=== PATIENT | female | born 2000 | race Asian ===

== ENCOUNTER 2024-07-15 16:22 | Day surgery (SDC) | payer OTHER, SELFPAY ==
[2024-07-15] VITALS (12 sets, daily range): BP systolic 115–137; BP diastolic 52–71
--- NOTE | 2024-07-15 11:17 | ED.GENMED ---
History of Present Illness
<Rakel Mobley PA-C - Last Filed: 07/15/24 14:13>
General
Chief Complaint: Abdominal Pain
Source: patient
Exam Limitations: none
Time Seen by Provider: 07/15/24 10:50
Nursing documentation reviewed up to this point in time: agreed with
History of Present Illness
History of Present Illness:
Patient is a 24-year-old female presenting with right lower abdominal pain starting last night. Patient states around 11 PM she had a dull pain in the middle of her abdomen which she tried to ignore and went to sleep. However�patient states that
she woke up today pain was much more severe and seem to migrate to the right lower quadrant. Pain does seem worse with walking. Reports associated nausea although no vomiting. She has had very little appetite since last night. Patient denies any
fever, chills, diarrhea/constipation, or any symptoms.
Of note�patient was diagnosed with an acute appendicitis in 04/2023 which was treated with IV antibiotics given patient was in [place] and scheduled to come to [facility] to start graduate school making an very soon after diagnosis.
Review of Systems
<Rakel Mobley PA-C - Last Filed: 07/15/24 14:13>
Review of Systems
Allergies reviewed?: Yes
All Other Systems: ROS reviewed and negative except as documented in HPI and ROS
Phy Exam
<Rakel Mobley PA-C - Last Filed: 07/15/24 14:13>
Physical Exam
Physical Exam:
Vitals: Patient's vital signs are stable. Afebrile
General: Patient is well appearing, no acute distress. Nontoxic-appearing
Skin: Warm and dry, no rashes or lesions
Head: Normocephalic, atraumatic
Eyes: Sclera nonicteric.
Throat: Protecting airway
Neck: Normal ROM, no cervical spine tenderness, no meningismus
Cardiac: Regular rate and rhythm, no murmurs.
Pulm: Normal respiratory effort, no wheezes, rales, rhonchi heard on exam.
Abdomen: Abdomen soft. Moderate tenderness in right lower quadrant with voluntary guarding. No rebound tenderness. No CVA tenderness
Extremities: No evidence of cyanosis or edema. Palpable distal pulses
Neuro: AAOx3. Grossly intact.
Psychiatric: Normal affect.
Course
<Rakel Mobley PA-C - Last Filed: 07/15/24 14:13>
Orders/Labs/Results
Orders:
Orders
07/15/24 11:11
0.9% Sodium Chloride 1000 ml [Nss] 1,000 ml IV BOLUS
Ketorolac [Toradol] 15 mg IV NOW STA
Ondansetron Injectable [Zofran] 4 mg IV NOW STA
Test Result ONCE
07/15/24 11:14
CT Abd/pelvis W Iv Cont Urgent
Comment: hx appendicitis tx with IV abx
Reason For Exam: RLQ pain
07/15/24 11:17
Complete Blood Count/With Diff Urgent
Comprehensive Metabolic Panel Urgent
HCG, Serum Qualitative Screen Urgent
Lipase Urgent
07/15/24 11:44
Urinalysis Reflex To Culture Urgent
Date Specimen was Collected: 07/15/24
Time Specimen was Collected: 11:40
07/15/24 13:46
Piperacillin/Tazo 3.375 Gram [Zosyn] 3.375 gram in 50 ml IV NOW
07/15/24 13:50
Consult Surgery [SURGICAL CONSULT] Urgent
Consulting Provider: Grover Lau
Was physician already notified: Yes
Abnormal Lab Results
07/15/24
11:17
WBC 13.1 H 10^3/uL
(4.8-10.8)
Absolute Neuts (auto) 10.6 H 10^3/uL
(1.4-6.5)
Absolute Monos (auto) 0.8 H 10^3/uL
(0.1-0.6)
Neutrophils % 80.9 H %
(42.2-75.2)
Lymphocytes % 12.3 L %
(20.5-51.1)
Glucose 106 H mg/dl
(70-99)
07/15/24 11:17
07/15/24 11:17
Vital Signs
Initial and Last Documented VS:
Initial Vital Signs
Temp Pulse Resp BP Pulse Ox
98.9 F 97 16 137/70 100
07/15/24 09:57 07/15/24 09:57 07/15/24 09:57 07/15/24 09:57 07/15/24 09:57
Last Documented Vital Signs
Temp Pulse Resp BP Pulse Ox
98.9 F 71 16 122/71 100
07/15/24 09:57 07/15/24 13:32 07/15/24 14:00 07/15/24 13:32 07/15/24 13:32
<Angie Hendricks, - Last Filed: 07/15/24 14:30>
Orders/Labs/Results
Orders:
Orders
07/15/24 11:11
0.9% Sodium Chloride 1000 ml [Nss] 1,000 ml IV BOLUS
Ketorolac [Toradol] 15 mg IV NOW STA
Ondansetron Injectable [Zofran] 4 mg IV NOW STA
Test Result ONCE
07/15/24 11:14
CT Abd/pelvis W Iv Cont Urgent
Comment: hx appendicitis tx with IV abx
Reason For Exam: RLQ pain
07/15/24 11:17
Complete Blood Count/With Diff Urgent
Comprehensive Metabolic Panel Urgent
HCG, Serum Qualitative Screen Urgent
Lipase Urgent
07/15/24 11:44
Urinalysis Reflex To Culture Urgent
Date Specimen was Collected: 07/15/24
Time Specimen was Collected: 11:40
07/15/24 13:46
Piperacillin/Tazo 3.375 Gram [Zosyn] 3.375 gram in 50 ml IV NOW
07/15/24 13:50
Consult Surgery [SURGICAL CONSULT] Urgent
Consulting Provider: Grover Lau
Was physician already notified: Yes
Abnormal Lab Results
07/15/24
11:17
WBC 13.1 H 10^3/uL
(4.8-10.8)
Absolute Neuts (auto) 10.6 H 10^3/uL
(1.4-6.5)
Absolute Monos (auto) 0.8 H 10^3/uL
(0.1-0.6)
Neutrophils % 80.9 H %
(42.2-75.2)
Lymphocytes % 12.3 L %
(20.5-51.1)
Glucose 106 H mg/dl
(70-99)
07/15/24 11:17
07/15/24 11:17
Vital Signs
Initial and Last Documented VS:
Initial Vital Signs
Temp Pulse Resp BP Pulse Ox
98.9 F 97 16 137/70 100
07/15/24 09:57 07/15/24 09:57 07/15/24 09:57 07/15/24 09:57 07/15/24 09:57
Last Documented Vital Signs
Temp Pulse Resp BP Pulse Ox
98.9 F 71 16 122/71 100
07/15/24 09:57 07/15/24 13:32 07/15/24 14:00 07/15/24 13:32 07/15/24 13:32
<Rakel Mobley PA-C - Last Filed: 07/15/24 14:13>
MDM/Problems Addressed
Differential Diagnosis Includes:
Not limited to: Appendicitis, mesenteric adenitis, Ovarian Cyst, Ectopic , Kidney Stone, Pyelonephritis, Etc.
MDM/Problems Addressed:
24-year-old female with right lower quadrant abdominal pain worsening since last night. Mild associated anorexia and nausea. No vomiting or known fever. Patient does have history of appendicitis about a year ago while in [place] which was treated
with IV antibiotics only. Vital stable. On exam�patient is nontoxic-appearing. She is moderately tender in right lower quadrant at McBurney's point. No rebound tenderness. Cardio/pulmonary assessment unremarkable. Suspicion for acute
appendicitis given history and abdominal exam. Lower suspicion for pelvic etiology given location of pain. Other considerations include viral illness, mesenteric adenitis, kidney stone, pyelonephritis, etc. Will obtain lab work and CT with IV
contrast.
Chronic conditions affecting care:
N/A
<Rakel Mobley PA-C - Last Filed: 07/15/24 14:13>
*Radiology
Radiology exam reviewed: radiology read reviewed (Acute appendicitis)
*Pulse Oximetry
Patient hypoxic: no
*EKG
Interpreted by ED Provider?: NA
*Line Construction Superintendent Interpretation
Rate: Line Construction Superintendent- N/A
*Critical Care Note
Total Time (30-74mins, 75-104mins- exclusive of procedures): Not Applicable
<Rakel Mobley PA-C - Last Filed: 07/15/24 14:13>
Patient Management
Discussion with other providers: Nephrologist (Dr. Lau-General Surgery)
Escalation/DeEscalation of care consider admission/obs:
Admit to general surgery service for appendectomy vs IV antibiotics
<Rakel Mobley PA-C - Last Filed: 07/15/24 14:13>
Update Note
Update Note:
Update 12:15PM: In to reassess patient at bedside. Pain improved following toadol. Labs noted. Leukocytosis of 13.1. Otherwise no clinically significant abnormalities. CT pending
Update 1:30 PM: CT report reviewed. Finding consistent with acute appendicitis. General surgery consulted who was down to assess patient at bedside. Appendectomy recommended by general surgery given this is a recurrence although patient still
uncertain about surgery for his IV antibiotics. Patient admitted to general surgery service. Plan for OR versus IV antibiotics pending patient's decision on treatment plan. Patient accepted to general surgery service in stable condition.
ED Attending Note
<Rakel Mobley PA-C - Last Filed: 07/15/24 14:13>
-
Portions of this chart may have been created with voice recognition software.� Occasional wrong word or��sound alike� substitutions may have occurred due to the inherent limitations of voice recognition software.
<Angie Hendricks DO - Last Filed: 07/15/24 14:30>
ED Attending Note
Patient seen and examined by attending physician: Yes
I performed the substantive portion of visit, reviewed & personally made and approve the management plan that is documented in note by myself or LYN.: Yes
I performed a history and physical exam of patient and discussed management with resident, I reviewed resident's note and agree with documented findings and plan of care.: Yes
ED Attending Note:
24-year-old female without significant past medical history presenting to the emergency department for right lower quadrant abdominal pain. Patient reports symptoms started yesterday. Notes similar symptoms about a year ago, when she was living in
[place]. Was diagnosed with appendicitis, however treated with antibiotics, no surgical intervention. Denies any surgery in the past. Denies nausea, vomiting, fever. Denies symptoms. Vital signs are within normal limits
On exam patient is well-appearing, nontoxic. Patient has focal tenderness to the right lower quadrant with positive McBurney point tenderness. Concern acute appendicitis. Plan for laboratory analysis and CT abdominal imaging.
14:00 -patient with acute appendicitis. Plan for surgical consultation and admission
Discharge Plan
Departure
Patient Disposition: Admit
Date of Disposition: 07/15/24
Time of Disposition: 14:08
Presentation/result/management discussed w/ accepting MD/: Dr. Lau
Discharge Problem:
Acute appendicitis
Prescriptions:
No Action
multivitamin Tablet
1 tab PO DAILY
cetirizine 10 mg Tablet
10 mg PO DAILYPRN PRN (Reason: allergy symptoms )
lutein 40 mg Capsule
40 mg PO DAILY
Caltrate 600 plus D 600 mg-20 mcg (800 unit) Tablet,Chewable
1 tab PO DAILY
Interventions
Interventions:
*Risk Screen - Suicide Last Done: 07/15/24 10:57
*General Assessment Last Done: 07/15/24 10:57
*Neglect/Abuse Screening Last Done: 07/15/24 10:57
*ED COVID-19 Vaccine History Last Done: 07/15/24 10:57
NK-Mbsqke-Lpzfhtxlvb Assessment Last Done: 07/15/24 10:57
Discharge Date and Time
Print Language: ESTONIAN
[2024-07-15] MEDS: NSS 1000 IV ×2 (11:18→20:36)
[2024-07-15 11:29] LABS: % Basophils 0.4 % (0-2); % Eosinophils 0.2 % (0-6); % Immature Granulocytes 0.3 % (0-0.5); % Lymphocytes 12.3 % (20.5-51.1); % Monocytes 5.9 % (1.7-9.3); % Neutrophils 80.9 % (42.2-75.2); Absolute Basophils 0.1 10^3/uL (0-0.2); Absolute Lymphocytes 1.6 10^3/uL (1.2-3.4); Absolute Monocytes 0.8 10^3/uL (0.1-0.6); Absolute Neutrophils 10.6 10^3/uL (1.4-6.5); Hemoglobin 14.2 g/dL (12.0-16.0); Mean Corpuscular Hgb 29.7 pg (27.0-31.0); Mean Platelet Volume 8.8 fL (7.4-10.4); Nucleated Red Blood Cells % 0 %; Platelet Count 299 10^3/uL (130-400); Red Blood Cell Count 4.78 10^6/uL (4.20-5.40); Red Cell Dist. Width 11.8 % (11.5-14.5); White Blood Cell Count 13.1 10^3/uL (4.8-10.8)
[2024-07-15 11:49] LABS: ALT (SGPT) 30 U/L (0-35); AST (SGOT) 34 U/L (14-36); Albumin 4.8 g/dl (3.5-5.0); Alkaline Phosphatase 56 U/L (38-126); Blood Urea Nitrogen 14 mg/dl (7-17); Calcium 9.8 mg/dl (8.4-10.2); Carbon Dioxide 24 mmol/L (22-30); Chloride 103 mmol/L (98-107); Glucose 106 mg/dl (70-99); Lipase 73 U/L (23-300); Sodium 138 mmol/L (135-145); Total Bilirubin 1.3 mg/dl (0.2-1.3); Total Protein 7.7 g/dl (6.3-8.2); eGFR > 60.00
[2024-07-15 12:02] LABS: HCG, Serum Qualitative Screen Negative
[2024-07-15] MEDS: TORADOL 15 MG IV (12:05)
[2024-07-15 12:17] LABS: Urine Albumin Negative (Neg - Trace); Urine Bilirubin Negative (Negative); Urine Character Clear (Clear); Urine Color Yellow; Urine Glucose Negative (Negative); Urine Ketone Negative (Negative); Urine Nitrite Negative (Negative); Urine Occult Blood Negative (Negative); Urine Urobilinogen Negative (Neg - 1+)
[2024-07-15 12:24] LABS: Urine Leukocyte Negative (Negative)
[2024-07-15] MEDS: ZOSYN 50 IV ×2 (13:52→20:37)
--- NOTE | 2024-07-15 15:53 | CON.GS ---
Medical History
-
Chief Complaint: RLQ pain
History of Present Illness:
Patient is a 24 yo F with a PMH of appendicitis approximately 1 year ago treated with antibiotics while in [place] who presents with less than 24 hours of RLQ abdominal pain. Ms. Barrett states that her symptoms began acutely yesterday evening. She has
had persistent abdominal pain primarily in the RLQ. No nausea or vomiting. No fevers or chills. No fluctuations in bowel function such as diarrhea or bloody stools. No chronic GI issues. No family history notable for IBD or colon cancer. She
is currently not on her period. But is scheduled to have her period in approximately 1 week.
Past Medical History
Past Medical History: Other (Appendicitis managed with antibiotics)
Past Surgical History: None
Social History
Tobacco: Non-Smoker
Alcohol: None
Drug: None
Personal: Single
Family History
Family History: Reviewed & Noncontributory
Allergies / Home Medications
Allergy/AdvReac Type Severity Reaction Status Date / Time
No Known Allergies Allergy Verified 07/15/24 15:12
�Medication �Instructions �Recorded �Confirmed �Type
calcium 600 mg (as carbonate)-vit 1 tab PO DAILY Supplement 07/15/24 07/15/24 History
D3 20 mcg (800 unit) chewable
tablet (Caltrate plus D)
cetirizine 10 mg tablet 10 mg PO DAILYPRN PRN allergy 07/15/24 07/15/24 History
symptoms
lutein 40 mg capsule 40 mg PO DAILY Supplement 07/15/24 07/15/24 History
multivitamin 1 tab PO DAILY Supplement 07/15/24 07/15/24 History
Review of Systems
-
A 10 point review of systems was completed, and was negative except as per HPI.
Physical Exam
Vital Signs
Temp Pulse Resp BP Pulse Ox
98.7 F 76 18 123/69 99
07/15/24 15:11 07/15/24 15:11 07/15/24 15:11 07/15/24 15:11 07/15/24 15:11
07/14/24 07/15/24 07/16/24
06:59 06:59 06:59
Actual Weight 72.3 kg
Body Mass Index (BMI) 0.0
Lab Results
07/15/24 11:17
07/15/24 11:17
WBC 13.1 10^3/uL (4.8-10.8) H 07/15/24 11:17
Hgb 14.2 g/dL (12.0-16.0) 07/15/24 11:17
Hct 43.0 % (37.0-47.0) 07/15/24 11:17
Plt Count 299 10^3/uL (130-400) 07/15/24 11:17
Abs Immat Gran (auto) 0.0 10^3/uL (0-0.05) 07/15/24 11:17
Neutrophils % 80.9 % (42.2-75.2) H 07/15/24 11:17
Physical Exam
General: Well Developed, Well Nourished and No Apparent Distress
Respiratory: Non Labored Respirations
Cardiac: Regular Rhythm
GI: Soft, Non Distended, Tender (RLQ) and Other (Non-peritoneal)
Musculoskeletal: No Edema
Skin: Warm and Dry
Neuro: Nonfocal/Grossly Intact
Data Reviewed
-
CT Scan: Image Personally Visualized and interpreted and Report Reviewed by me
Labs: Labs Reviewed by me
Assessment / Plan
-
Patient is a 24 yo F p/w acute appendicitis
The natural history and pathophysiology of appendicitis was reviewed. CT scan imaging as relates to her appendix was reviewed. Options for management including medical management with antibiotics versus surgical management with appendectomy are
considered and discussed. Pros and cons of both approaches was discussed. Specifically, we discussed failure of medical management and future episodes of appendicitis versus surgical risks. Given her recurrent episodes of appendicitis would
recommend appendectomy.
Plan for laparoscopic appendectomy. The procedure itself, as well as the risks, benefits, and alternatives was discussed. Specifically, we discussed the risk of bleeding, infection, injury to surrounding structures (bowel, bladder), staple line
leak, need for open procedure. Postprocedural recovery was discussed. All questions answered. Consent signed.
-- Laparoscopic appendectomy
-- NPO, IVF
-- Abx: Zosyn
-- Pain control: Tylenol and IV Dilaudid PRN
-- Admit post-operatively
--- NOTE | 2024-07-15 16:01 | W.SUR.PREOP ---
Pre-Operative Surgical Note
-
I have examined this patient prior to the performance of the scheduled procedure.
The patient's condition is unchanged from the time of the current History and
Physical and the patient is able to undergo the scheduled procedure.
--- NOTE | 2024-07-15 17:50 | W.IMMPOSTOP ---
Surgical Immed Post Op Note
-
Primary Surgeon: Judi
Assisting Surgeon: None
Pre-op Diagnosis: Acute appendicitis
Post-op Diagnosis: Acute appendicitis
Procedure Performed: Laparoscopic appendectomy
Anesthesia Type: General
Specimen / Cultures:
1. Appendix
Estimated Blood Loss: 3 cc
Complications: None
Operative Findings:
1. Acutely inflamed and dilated tip appendicitis with normal-appearing base, no evidence of perforation, serous reactive fluid removed from pelvis
2. Mesentery taken with point energy device, base with mack load stapler
--- NOTE | 2024-07-15 18:19 | PTCARENOTE ---
Patient admitted from [facility] post laparoscopic appendectomy.All 4 lap sites are intact without drainage.The patient denies any pain.Vital signs are stable.The patient is alert and oriented.She is in her bed with the call berry in reach.Her family is at
the bedside.
[2024-07-15] MEDS: TYLENOL 650 MG PO (23:24)
[2024-07-16] MEDS: TORADOL 10 MG IV (01:45)
[2024-07-16] MEDS: TYLENOL 650 MG PO ×2 (03:06→08:03)
[2024-07-16 03:16] VITALS: BP 119/73
--- NOTE | 2024-07-16 06:53 | W.PN.GS2 ---
Today's Communication / Plan
-
-- DC
Assessment / Plan
-
Patient is a 24 yo F POD#1 s/p laparoscopic appendectomy
Recovering well. No postoperative concerns.
-- Regular diet
-- HLIV
-- Pain control: Tylenol, Toradol, Oxycodone
-- Abx: None further needed
-- DC home
Subjective Data
-
Date of Service: July 16, 2024
Reports discomfort from gas. Denies any current nausea or vomiting. Minimal ambulation postop. Voiding. Afebrile.
Objective Data
-
Intake and Output
07/14/24 07/15/24 07/16/24
06:59 06:59 06:59
Intake Total 730 / 730
Balance 730 / 730
Intake:
Oral fluids 480 / 480
IV fluids (Total) 200 / 200
Normosal 200 / 200
IV piggybacks 50 / 50
Other:
Number of approximated MODERATE 2
amounts of urine
Vital Signs
Temp Pulse Resp BP Pulse Ox
97.7 F 75 16 119/73 96
07/16/24 03:16 07/16/24 03:16 07/16/24 03:16 07/16/24 03:16 07/16/24 03:16
Lab Results
07/15/24 11:17
07/15/24 11:17
Calcium 9.8 mg/dl (8.4-10.2) 07/15/24 11:17
Total Bilirubin 1.3 mg/dl (0.2-1.3) 07/15/24 11:17
AST 34 U/L (14-36) 07/15/24 11:17
ALT 30 U/L (0-35) 07/15/24 11:17
Alkaline Phosphatase 56 U/L (38-126) 07/15/24 11:17
Total Protein 7.7 g/dl (6.3-8.2) 07/15/24 11:17
Albumin 4.8 g/dl (3.5-5.0) 07/15/24 11:17
Physical Exam
-
Gen: NAD
Abd: soft, mild tenderness, ND, non-peritoneal, incisions c/d/i - no erythema, ecchymosis or drainage
[2024-07-16 07:48] VITALS: BP 115/58
[2024-07-16] MEDS: AFLURIA (36 mos+) 2024-2025 FORMULA 0.5 ML IM (08:00)
--- NOTE | 2024-07-16 10:18 | CM ---
Addendum entered by Yaneth Canales 07/16/24 10:24:
friend/family transporting home
Original Note:
Patient seen at bedside. Outpatient status
IA completed
Dx: Acute appendicitis
Patient lives alone in an apartment
PLOF: Independent, no device
Denies DME, Denies HH & Rehab
Denies PCP currently - information on residency clinic given to patient
PCP: none currently
Pharmacy: [facility]
Plan: Home, no needs
== END 2024-07-16 10:30 | disposition home or self-care (01) ==
LOC: PACU 16:22
PROVIDERS: Physician Assistant; ATTENDING PHYSICIAN Surgery; EMERGENCY PHYSICIAN Student in an Organized Health Care Education/Training Program
DX: K35.80 Unspecified acute appendicitis (principal)
CPT/HCPCS: 44970; 88304; 74177; 80053; 81003; 83690; 84703; 85025; 90686; 96361; 96374; 96375; 99285; C1776; G0008; Q9967